=== PATIENT | male | born 1990 | race Caucasian/White ===

== ENCOUNTER 2019-03-21 23:11 | Emergency (ER) | payer OTHER ==
[~2019-03-21] VITALS: Ht 185.4 cm; Wt 136.1 kg
[~2019-03-21 23:11] MED LIST: BACTRIM DS TAB1 EACH PO; NOHOMEMEDICATIONS; NORCO 5-325 TA1 EACH PO
[2019-03-21] MEDS ORDERED: LEXAPRO20 MG PO (23:21)
[2019-03-21] MEDS ORDERED: TRAZODONE 150150 M1 PO (23:22)
[2019-03-22] MEDS ORDERED: AUGMENTIN 875-1 EACH PO (00:48)
[2019-03-22] MEDS ORDERED: NORCO 7.5-3251 EACH PO (00:48)
[2019-03-22 01:03] VITALS: BP 142/98
== END 2019-03-22 01:03 | disposition home or self-care (01) ==
LOC: M.ERS 23:11
DX: S01.511A Laceration without foreign body of lip, initial encounter (principal); F17.210 Nicotine dependence, cigarettes, uncomplicated; W55.81XA Bitten by other mammals, initial encounter; Y93.89 Activity, other specified; Y92.89 Other specified places as the place of occurrence of the external cause; Y99.8 Other external cause status

== ENCOUNTER 2020-03-20 22:10 | Emergency (ER) | payer OTHER ==
[~2020-03-20] VITALS: Ht 188 cm; Wt 136.1 kg
[~2020-03-20 22:10] MED LIST changes: +AUGMENTIN 875-1 EACH PO; +LEXAPRO20 MG PO; +NORCO 7.5-3251 EACH PO; +TRAZODONE 150150 M1 PO
[2020-03-20] MEDS ORDERED: NORCO 5-325 TA1 EAC2 PO (22:42)
[2020-03-20] MEDS ORDERED: AUGMENTIN 875-1 EACH PO (22:42)
[2020-03-20 22:47] VITALS: BP 153/109
== END 2020-03-20 22:47 | disposition home or self-care (01) ==
LOC: M.ERS 22:10
DX: S01.111A Laceration without foreign body of right eyelid and periocular area, initial encounter (principal); F17.210 Nicotine dependence, cigarettes, uncomplicated; Z86.14 Personal history of Methicillin resistant Staphylococcus aureus infection; W55.81XA Bitten by other mammals, initial encounter; Y93.89 Activity, other specified; Y92.89 Other specified places as the place of occurrence of the external cause; Y99.8 Other external cause status